=== PATIENT | male | born 1980 | race Asian ===

== ENCOUNTER → 2016-12-31 | Outpatient (CLI) | payer OTHER ==
--- NOTE | ~2016-12-31 | CR63 ---
[facility] A Service of [facility] & [facility] RADIOLOGY TEXT RESULTS PATIENT: ASHLEY TAMAYO LOCATION: [facility] : 84 UNIT #: [id number] AGE: [address]: Jil Molina APRN SEX: M ORDER DR: [id number] [facility] [address] [place], [place] [address] [id number] O MR#: [id number] Acc #: [id number] NAME: ASHLEY TAMAYO : 1980 SEX: M STUDY DATE/TIME: 12/31/2016 10:55 UNIT: [facility] ROOM: STUDY DESCRIPTION: CR Chest 2 View Attending Physician: Jil Molina A.P.R.N. Referring Physician: Jil Molina A.P.R.N. Ordering Physician: Jil Molina A.P.R.N. Primary Care Physician: Jil Molina A.P.R.N. MEDICAL IMAGING REPORT This report is preliminary unless electronic signature is present EXAM Chest 12/31/2016, [facility] HISTORY 36-year-old male patient with unexplained weight loss past 3 months. Sensation of unable to get breath with some pain on inspiration. Past smoker. COMPARISON Chest none. FINDINGS PA and lateral chest views show normal cardiac size and configuration. Hilar structures and mediastinal contours are preserved. Bilateral lungs are expanded and clear. IMPRESSION Negative chest. Dictated by... Saurav Eddy M.D. THIS IS AN ELECTRONICALLY VERIFIED REPORT Saurav Eddy M.D. at 01/01/2017 8:04 AM JBB/sridevi TD: 12/31/2016 16:10 JOB #: [id number] MEDICAL IMAGING REPORT Page 1 of 1 COPY
== END | disposition home or self-care (01) ==
LOC: CRAD 10:31
DX: R05 Cough (principal)
CPT/HCPCS: 71020